=== PATIENT | female | born 1990 | race Caucasian/White ===

== ENCOUNTER 2020-11-06 00:11 | Emergency (ER) | payer BC ==
[2020-11-06] MEDS ORDERED: Sodium Chloride 0.9% 1000 ML 1,000 ML IV STA (00:36)
[2020-11-06] MEDS ORDERED: Sodium Chloride 0.9% 1000 ML 1,000 ML ONE (00:41)
[2020-11-06 01:34] LABS: Absolute Neutrophil Ct (ANC) 4.33 (1.4-6.9); BASOPHIL % 0.4 % (0.0-0.4); Basophil (Absolute #) 0.03 (0-0.4); Eosinophil (Absolute #) 0.37 (0-0.5); Hemoglobin 13.1 gm/dl (12.0-16.0); Lymphocyte (Absolute #) 2.12 (1.0-4.6); Lymphocytes % 28.6 % (24.0-44.0); Mean Cell Volume 90.3 fl (78-100); Mean Corpuscular Hemoglobin 30.3 pg (26-32); Mean Corpuscular Hgb Concent. 33.6 g/dl (32-36); Mean Platelet Volume 10.4 fl (7.5-11.0); Monocyte (Absolute #) 0.55 (0.0-1.3); Monocytes % 7.4 % (0.0-12.0); Neutrophil % 58.6 % (36.0-66.0); Platelet Count 316 K/mm3 (150-450); Red Blood Count 4.32 M/mm3 (4.1-5.4); White Blood Count 7.4 K/mm3 (4.0-10.5)
[2020-11-06 01:41] LABS: Amourphous Crystal FEW /HPF (NEGATIVE); Appearance SLIGHTLY CLOUDY (CLEAR); Bacteria RARE /HPF (NEGATIVE); Bilirubin NEGATIVE (NEGATIVE); Blood LARGE Ery/ul (0-5); Epithelial Cells FEW /HPF (FEW); Glucose NEGATIVE (NEGATIVE); Ketones NEGATIVE (NEGATIVE); Leukocyte Esterase NEGATIVE (NEGATIVE); Mucus SLIGHT /HPF (NEGATIVE); Nitrite NEGATIVE (NEGATIVE); Protein,Urine Dip 30 (Negative); Specific Gravity 1.031 (1.005-1.025); Urobilinogen 2 mg/dL (0-1)
[2020-11-06 01:43] LABS: RBC >101 /HPF (0-2)
[2020-11-06 01:45] LABS: ALKALINE PHOSPHATASE 52 U/L (38-126); ANION GAP 8.7 MEQ/L (5-15); BLOOD UREA NITROGEN 11 mg/dL (7-17); CHLORIDE 109 mmol/L (98-107); Calcium 8.7 mg/dL (8.4-10.2); Carbon Dioxide 24 mmol/L (22-30); Creatinine 1 0.59 mg/dL (0.52-1.04); EST GLOMERULAR FILTRATION RATE > 60.0 ML/MIN; Glucose 121 mg/dL (74-106); Potassium 3.6 mmol/L (3.5-5.1); SGOT/AST 36 U/L (14-36); SGPT/ALT 69 U/L (0-35); SODIUM 138 mmol/L (137-145); Total Protein 7.2 g/dL (6.3-8.2)
--- NOTE | 2020-11-06 01:51 | ERPHSYRPT ---
- History of Present Illness Time Seen by Provider: 11/06/20 00:35 Source: patient Exam Limitations: no limitations Patient Subjective Stated Complaint: pt states "I have been on my period since October 19 or but it was very light." "I have been bleeding heavy since ." "I have no energy." Triage Nursing Assessment: pt ambulated into the er; pt is axo x3; c/o heavy menstral bleeding; pt states no energy; denies pain; pt states large clots present; abd obese, soft, non-tender; hyperactive bowel sounds in all quads; clear lung sounds in all lobes; afebrile; vitals wnl Physician History: 30-year-old female with bleeding since mid October every year since with some passage of clots. She has been treated with a medication in October which may well have been Premarin although she is not certain that sounds familiar she is presently on progesterone which was started recently. She denies any pain she has had some clots. Timing/Duration: constant Activites at Onset: none Sexual intercourse history: non-contributory Modifying Factors: Improves With: nothing Associated Symptoms: denies symptoms Allergies/Adverse Reactions: No Known Drug Allergies Allergy (Unverified 11/06/20 00:24) Home Medications: Medroxyprogesterone Acet [[id number] mg] 10 mg PO DAILY 11/06/20 [History] Hx Tetanus, Diphtheria Vaccination/Date Given: No Hx Influenza Vaccination/Date Given: No Hx Pneumococcal Vaccination/Date Given: No Travel Risk - International Travel Have you traveled outside of the country in past 3 weeks: No - Coronavirus Screening Are you exhibiting any of the following symptoms?: No Close contact with a COVID-19 positive Pt in past 14-21 Days: No - Review of Systems Constitutional: No Fever, No Chills Eyes: No Symptoms Ears, Nose, & Throat: No Symptoms Respiratory: No Cough, No Dyspnea Cardiac: No Chest Pain, No Edema, No Syncope Abdominal/Gastrointestinal: No Abdominal Pain, No Nausea, No Vomiting, No Diarrh ea Genitourinary Symptoms: Vaginal Bleeding, No Dysuria Musculoskeletal: No Back Pain, No Neck Pain Skin: No Rash Neurological: No Dizziness, No Focal Weakness, No Sensory Changes Psychological: No Symptoms Endocrine: No Symptoms All Other Systems: Reviewed and Negative - Past Medical History Pertinent Past Medical History: No - Past Surgical History Past Surgical History: Yes Gastrointestinal: Cholecystectomy Musculoskeletal: Orthopedic Surgery Other Surgical History: neck surgery - Social History Smoking Status: Never smoker Exposure to second hand smoke: Yes Drug Use: none Patient Lives Alone: No - Female History Hx Last Menstrual Period: currently on Hx Now: No - Nursing Vital Signs Nursing Vital Signs: Initial Vital Signs Temperature 98.3 F 11/06/20 00:26 Pulse Rate 99 H 11/06/20 00:26 Respiratory Rate 22 11/06/20 00:26 Blood Pressure 127/92 11/06/20 00:26 O2 Sat by Pulse Oximetry 97 11/06/20 00:26 Pain Scale Pain Intensity 0 - Physical Exam General Appearance: no apparent distress, alert Eye Exam: PERRL/EOMI, eyes nml inspection Ears, Nose, Throat Exam: normal ENT inspection, TMs normal, pharynx normal, moist mucous membranes Neck Exam: normal inspection, non-tender, supple, full range of motion Respiratory Exam: normal breath sounds, lungs clear, No respiratory distress Cardiovascular Exam: regular rate/rhythm, normal heart sounds, normal peripheral pulses Gastrointestinal/Abdomen Exam: soft, No tenderness, No mass Pelvic Exam: vaginal bleeding (No clots observed) Rectal Exam: not done Back Exam: normal inspection, normal range of motion, No CVA tenderness, No vertebral tenderness Extremity Exam: normal inspection, normal range of motion, pelvis stable Neurologic Exam: alert, oriented x 3, cooperative, weight and balance control agent II-XII nml as tested, normal mood/affect, sensation nml, No motor deficits Skin Exam: normal color, warm, dry Lymphatic Exam: No adenopathy SpO2: 97 - Course Nursing assessment & vital signs reviewed: Yes Ordered Tests: Active Orders 24 hr Category Date Time Status IV Insertion STAT Care 11/06/20 00:36 Active CBC W DIFF Stat Lab 11/06/20 01:30 Completed CMP Stat Lab 11/06/20 01:30 Received CULTURE,URINE Stat Lab 11/06/20 00:41 Received HCG,QUALITATIVE URINE Stat Lab 11/06/20 00:41 Completed UA W/RFX UR CULTURE Stat Lab 11/06/20 00:41 Completed Medication Summary Discontinued Medications Generic Name Dose Route Start Last Admin Trade Name Freq PRN Reason Stop Dose Admin Sodium Chloride 1,000 mls @ 999 mls/hr 11/06/20 00:36 11/06/20 00:43 Sodium Chloride 0.9% 1000 Ml IV 11/06/20 01:36 999 mls/hr .Q1H1M STA Administration Sodium Chloride Confirm 11/06/20 00:41 Sodium Chloride 0.9% 1000 Ml Administered 11/06/20 00:42 Dose 1,000 mls @ ud .ROUTE .STK-MED ONE Lab/Rad Data: Laboratory Result Diagrams 11/06/20 01:30 Laboratory Results 11/06/20 11/06/20 11/06/20 Range/Units 01:30 00:41 00:41 WBC 7.4 (4.0-10.5) K/mm3 RBC 4.32 (4.1-5.4) M/mm3 Hgb 13.1 (12.0-16.0) gm/dl Hct 39.0 (35-47) % MCV 90.3 (78-100) fl MCH 30.3 (26-32) pg MCHC 33.6 (32-36) g/dl RDW 13.0 (11.5-14.0) % Plt Count 316 (150-450) K/mm3 MPV 10.4 (7.5-11.0) fl Gran % 58.6 (36.0-66.0) % Eos # (Auto) 0.37 (0-0.5) Absolute Lymphs (auto) 2.12 (1.0-4.6) Absolute Monos (auto) 0.55 (0.0-1.3) Lymphocytes % 28.6 (24.0-44.0) % Monocytes % 7.4 (0.0-12.0) % Eosinophils % 5.0 (0.00-5.0) % Basophils % 0.4 (0.0-0.4) % Absolute Granulocytes 4.33 (1.4-6.9) Basophils # 0.03 (0-0.4) Urine Color YELLOW (YELLOW) Urine Appearance SLIGHTLY CLOUDY (CLEAR) Urine pH 6.0 (5-6) Ur Specific Connelly 1.031 (1.005-1.025) Urine Protein 30 (Negative) Urine Ketones NEGATIVE (NEGATIVE) Urine Blood LARGE (0-5) David/ul Urine Nitrite NEGATIVE (NEGATIVE) Urine Bilirubin NEGATIVE (NEGATIVE) Urine Urobilinogen 2 (0-1) mg/dL Ur Leukocyte Esterase NEGATIVE (NEGATIVE) Urine WBC (Auto) 3-5 (0-5) /HPF Urine RBC (Auto) >101 (0-2) /HPF U Epithel Cells (Auto) FEW (FEW) /HPF Urine Bacteria (Auto) RARE (NEGATIVE) /HPF Amorphous Crystals FEW (NEGATIVE) /HPF Urine Mucus (Auto) SLIGHT (NEGATIVE) /HPF Urine Culture Reflexed YES (NO) Urine Glucose NEGATIVE (NEGATIVE) mg/dL Urine HCG, Qual NEGATIVE (Negative) - Progress Progress: unchanged Air Movement: good Discussed with : Jose Antonio Will see patient in: office - Departure Departure Disposition: Home Clinical Impression: Dysfunctional uterine bleeding Condition: Stable Critical Care Time: No Referrals: TAYLOR MOE [Primary Care Provider] - Instructions: Bleeding Between Periods
[2020-11-06 02:09] VITALS: BP 124/78; PULSE 88; O2SAT 100
== END 2020-11-06 02:08 | disposition home or self-care (01) ==
LOC: ED 00:11
DX: N93.8 Other specified abnormal uterine and vaginal bleeding (principal); Z79.899 Other long term (current) drug therapy
CPT/HCPCS: 36000; 36415; 80053; 81001; 84703; 85025; 87086; 96360; 99284

== ENCOUNTER 2022-01-18 19:40 | Emergency (ER) | payer BC ==
--- NOTE | 2022-01-18 19:45 | ERPHSYRPT ---
- History of Present Illness Time Seen by Provider: 01/18/22 19:44 Source: patient Exam Limitations: no limitations Physician History: This is a 31-year-old morbidly obese white female patient of Dr. Raciel Aguilar who was walking at work and felt a popping sensation followed by pain in the dorsal aspect of her right foot. It occurred prior to arrival to the emergency department. Patient attempted to continue working but the pain was very significant. There was no acute traumatic injury. She did not fall. Method of Injury: unknown Occurred: just prior to arrival Quality: aching Severity of Pain-Max: moderate Severity of Pain-Current: mild (To moderate) Lower Extremities Pain: foot: right (Dorsal aspect) Modifying Factors: Improves With: movement Associated Symptoms: other (Patient can bear weight but it hurts to do so.) Allergies/Adverse Reactions: No Known Drug Allergies Allergy (Verified 01/18/22 19:53) Home Medications: RX: Medroxyprogesterone Acet [[id number] mg] 10 mg PO HS 11/06/20 [History] Hx Tetanus, Diphtheria Vaccination/Date Given: No Hx Influenza Vaccination/Date Given: No Hx Pneumococcal Vaccination/Date Given: No Travel Risk - International Travel Have you traveled outside of the country in past 3 weeks: No - Coronavirus Screening Are you exhibiting any of the following symptoms?: No Close contact with a COVID-19 positive Pt in past 14-21 Days: No - Review of Systems Constitutional: No Symptoms Eyes: No Symptoms Ears, Nose, & Throat: No Symptoms Respiratory: No Symptoms Cardiac: No Symptoms Abdominal/Gastrointestinal: No Symptoms Genitourinary Symptoms: No Symptoms Musculoskeletal: Injury (Right foot dorsal aspect) Skin: No Symptoms Neurological: No Symptoms Psychological: No Symptoms Endocrine: No Symptoms Hematologic/Lymphatic: No Symptoms Immunological/Allergic: No Symptoms All Other Systems: Reviewed and Negative - Past Medical History Pertinent Past Medical History: No - Past Surgical History Past Surgical History: Yes Gastrointestinal: Cholecystectomy Musculoskeletal: Orthopedic Surgery Other Surgical History: neck surgery - Social History Smoking Status: Never smoker Exposure to second hand smoke: Yes Drug Use: none Patient Lives Alone: No - Nursing Vital Signs Nursing Vital Signs: Initial Vital Signs Temperature 98.2 F 01/18/22 19:44 Pulse Rate 100 H 01/18/22 19:44 Respiratory Rate 20 01/18/22 19:44 Blood Pressure 148/98 01/18/22 19:44 O2 Sat by Pulse Oximetry 100 01/18/22 19:44 Pain Scale Pain Intensity 3 - Physical Exam General Appearance: no apparent distress, alert, anxiety, obese Eyes, Ears, Nose, Throat Exam: normal ENT inspection, moist mucous membranes Neck Exam: normal inspection, non-tender, supple, full range of motion Cardiovascular/Respiratory Exam: chest non-tender, no respiratory distress Gastrointestinal/Abdominal Exam: non-tender Back Exam: normal inspection, normal range of motion, No CVA tenderness, No vertebral tenderness Hips Exam: bilateral: non-tender, normal inspection, normal range of motion, no evidence of injury Legs Exam: bilateral leg: non-tender, normal inspection, normal range of motion, no evidence of injury Knees Exam: bilateral knee: non-tender, normal inspection, normal range of motion, no evidence of injury Ankle Exam: bilateral ankle: non-tender, normal inspection, normal range of motion, no evidence of injury Foot Exam: right foot: bone tenderness (Dorsal aspect), soft tissue tenderness (Dorsal aspect), left foot: non-tender, bilateral foot: normal inspection, normal range of motion, no evidence of injury Neuro/Tendon Exam: normal sensation, normal motor functions, normal tendon functions, no evidence tendon injury Mental Status Exam: alert, oriented x 3, cooperative Skin Exam: normal color, warm, dry SpO2 Interpretation: normal O2 Delivery: Room Air - Course Nursing assessment & vital signs reviewed: Yes Ordered Tests: Active Orders 24 hr Category Date Time Status FOOT (MINIMUM 3 VIEWS) Stat Exams 01/18/22 19:56 Taken - Progress Progress: unchanged Progress Note: 01/18/22 21:07 X-ray right foot reveals no evidence of any acute fracture or dislocation Counseled pt/family regarding: diagnosis, need for follow-up, rad results - Departure Departure Disposition: Home Clinical Impression: Right foot pain Condition: Stable Critical Care Time: No Referrals: TAYLOR DAO [Primary Care Provider] - Follow up/PCP as directed Additional Instructions: Ice bath as discussed 3-4 times a day for 48 hours. Use Tylenol ibuprofen for pain control. Follow-up with [facility] podiatry Dr. Chirinos, for persistent symptoms. Forms: Work/School Release Form
[2022-01-18 21:13] VITALS: BP 137/75; PULSE 93; O2SAT 95
--- NOTE | 2022-01-19 08:47 | XRAY ---
Indication: Chronic pain with weightbearing 6 years. Comparison: June 26, 2021. 3 nonweightbearing views right foot unchanged again demonstrating small plantar/tiny posterior heel spurs, large talonavicular accessory ossicle, and tiny cuboid accessory ossicle. No new/acute bony, articular, or soft tissue abnormalities.
== END 2022-01-18 21:29 | disposition home or self-care (01) ==
LOC: ED 19:40
DX: M79.671 Pain in right foot (principal)
CPT/HCPCS: 73630; 99283